=== PATIENT | female | born 1960 | race Caucasian/White ===

== ENCOUNTER 2023-02-03 17:47 | Emergency (ER) | payer BC, SELFPAY ==
[2023-02-03] VITALS (49 sets, daily range): BP systolic 81–178; BP diastolic 44–144; PULSE 84–132; RESP 15–88; TEMP 36.4–37.3; O2SAT 25–98; BMI 32.3
--- NOTE | 2023-02-03 18:04 | EX.ED.DYSGE1 ---
HPI <VALENTIN Kennedy - Last Filed: 02/03/23 20:45> History of Present Illness Chief Complaint: General Illness Narrative Narrative: About 6 days ago patient developed N/V/D and fatigue. She states it resolved after about 3 days but she still feels tired and weak. She has been able to keep down a little bit of food like applesauce and crackers. She is fallen twice this week because she feels weak. No head injury or other injuries. She also complains of low back pain. She did not injure her back during the fall. She states she always urinate frequently but has not noticed a change. She has no chest pain, shortness of breath, cough, abdominal pain, or blood in stool. PFSH <VALENTIN Kennedy - Last Filed: 02/03/23 20:45> [facility] Home Medications atenolol 25 mg tablet mg 02/03/23 [History Last Taken Unknown] Allergy/AdvReac Type Severity Reaction Status Date / Time No Known Allergies Allergy Verified 02/03/23 17:50 Social History (System 10/09/18 @ 08:26 by Bekah Hunt) Smoking Status: Never smoker ROS <VALENTIN Kennedy - Last Filed: 02/03/23 20:45> ROS ED ROS Narrative Constitutional: Negative for fever. Positive for malaise. CVS: Negative for palpitations, chest pain, syncope. Respiratory: Negative for shortness of breath, cough. GI: Positive for nausea, vomiting, diarrhea. Negative for abdominal pain. : Negative for dysuria, hematuria. Neuro: Negative for headache. EXAM <VALENTIN Kennedy Last Filed: 02/03/23 20:45> Physical Exam Narrative Exam Narrative: CONST: Patient sitting in no acute distress. EYES: Normal inspection. ENT: Normal inspection, dry mucous membranes. NECK: Normal inspection. RESP: No respiratory distress, CTAB. CVS: Rapid but regular rhythm, no murmur, no gallop. ABD: Soft and nontender, no guarding or rebound, nondistended, normal bowel sounds x 4. SKIN: Color normal, no rash, warm, dry, intact. EXTREMITIES: Normal appearance, no pedal edema. NEURO: Oriented x4. PSYCH: Normal affect. Const Vital Signs: 02/03/23 17:48 02/03/23 18:02 02/03/23 19:16 Temperature 97.6 F L 98.6 F Temperature Source Temporal Temporal Pulse Rate 114 H 89 Respiratory Rate 19 H 20 H Respiratory Effort Normal Non-Labored Respiratory Pattern Normal Blood Pressure 81/56 L 93/63 Blood Pressure Mean 64 73 Pulse Ox 96 98 Oxygen Delivery Method Room Air Room Air 02/03/23 19:48 02/03/23 19:50 02/03/23 20:00 Temperature 98.9 F Temperature Source Oral Pulse Rate 86 84 87 Respiratory Rate 22 H 21 H 16 Respiratory Effort Respiratory Pattern Blood Pressure 93/62 Blood Pressure Mean 72 Pulse Ox 94 94 93 Oxygen Delivery Method Room Air Room Air 02/03/23 20:35 Temperature Temperature Source Pulse Rate 92 Respiratory Rate 17 Respiratory Effort Respiratory Pattern Blood Pressure 100/86 H Blood Pressure Mean 90 Pulse Ox 92 Oxygen Delivery Method Room Air <Dr. Nathen Banda MD - Last Filed: 02/03/23 19:03> Physical Exam Const Vital Signs: 02/03/23 17:48 02/03/23 18:02 02/03/23 19:16 Temperature 97.6 F L 98.6 F Temperature Source Temporal Temporal Pulse Rate 114 H 89 Respiratory Rate 19 H 20 H Respiratory Effort Normal Non-Labored Respiratory Pattern Normal Blood Pressure 81/56 L 93/63 Blood Pressure Mean 64 73 Pulse Ox 96 98 Oxygen Delivery Method Room Air Room Air 02/03/23 19:48 02/03/23 19:50 02/03/23 20:00 Temperature 98.9 F Temperature Source Oral Pulse Rate 86 84 87 Respiratory Rate 22 H 21 H 16 Respiratory Effort Respiratory Pattern Blood Pressure 93/62 Blood Pressure Mean 72 Pulse Ox 94 94 93 Oxygen Delivery Method Room Air Room Air 02/03/23 20:35 Temperature Temperature Source Pulse Rate 92 Respiratory Rate 17 Respiratory Effort Respiratory Pattern Blood Pressure 100/86 H Blood Pressure Mean 90 Pulse Ox 92 Oxygen Delivery Method Room Air MDM <VALENTIN Kennedy - Last Filed: 02/03/23 20:45> MDM MDM Narrative Medical decision making narrative: History from: patient and spouse Patient has had recent and/V/D as well as weakness and falls. She appears well and nontoxic. BP 81/56, HR 114, otherwise normal vital signs. She has very dry mucous membranes. Heart is rapid but regular with no murmurs. Lungs clear. Abdomen soft and nontender. She has no tenderness of her back or spine. Labs show white count of 19.8, normal hemoglobin at 13.3, platelets 12. She also has a BUN of 100, creatinine 3.07, sodium 130. She has no prior labs for comparison but has no history of kidney disease. I suspect her CECIL could be from dehydration but since she also has a complaint of back pain I ordered a CT scan to rule out renal process. CT shows an 11 mm left UPJ stone with moderate hydronephrosis and perinephric stranding. UA is also consistent with urinalysis. Blood cultures were ordered he was given IV Rocephin. After 3 L IV fluids her blood pressure is now 100/86. Pain was treated with fentanyl due to hypotension. She requires transfer since we do not have urology. Case was discussed with attending at [facility] who accepted. Patient is awaiting a bed. 30 minutes of critical care time was consumed by evaluation of the patient, treatment and planning, discussion with consultants I have personally performed a face to face assessment of the patient and have reviewed the [facility] Note. I performed a substantive portion of the visit including all aspects of the following. My eagle findings include: History is 62-year-old female history of hypertension. 6 days ago started having nausea vomiting and diarrhea for at least 3 days. Says that is somewhat improved. But today felt very weak and fell several times. No LOC. No injuries in the fall. She denies any melena or hematemesis. Patient works at a senior living. Exam is [62-year-old female initial blood pressure 81/56 with a heart rate of 114. Clinic looks very dehydrated. HEENT exam pupils round react to light no trauma to her face or scalp. Very dry mucous membranes and lips. Neck nontender. Lungs clear to auscultation bilaterally. Heart regular rhythm no murmur rate about 115. Chest wall and ribs nontender. Abdomen soft nontender. No peritoneal signs. No distention. Moving all 4 extremities. Nontender no edema. No deformity. Normal marine chronometer assembler strength. Normal dorsi plantarflexion. Back nontender. Skin pale. No rashes. Patient is awake and alert with no focal motor deficits.] Medical Decision Making [62-year-old female suspect significant dehydration suspect secondary to viral gastroenteritis. IV fluids x 2 L. Screening labs. Clinically her abdomen is benign I do not think she needs any imaging.] Other additions or changes: [None] Lab Data Labs: Laboratory Results - last 24 hr 02/03/23 02/03/23 18:25 19:35 WBC 19.8 H RBC 4.87 Hgb 13.3 Hct 39.1 MCV 80.3 L MCH 27.3 MCHC 34.0 RDW Std Deviation 42.9 RDW Coeff of Apurva 14.9 H Plt Count 12 L* MPV TNP Immature Gran % (Auto) 2.000 H Neut % (Auto) 89.8 H Lymph % (Auto) 3.2 L Garrard % (Auto) 4.8 Eos % (Auto) 0.1 Baso % (Auto) 0.1 Absolute Neuts (auto) 17.8 H Absolute Lymphs (auto) 0.64 L Nucleated RBC % 0 Differential Comment SCANNED Diff Path Review June foll Sodium 130 L Potassium 3.5 Chloride 100 Carbon Dioxide 18.0 L Anion Gap 12 BUN 100 H Creatinine 3.07 H Est GFR (MDRD) Af Amer 20 L Est GFR (MDRD) Non-Af 16 L BUN/Creatinine Ratio 32.6 H Glucose 168 H Lactic Acid 1.5 Calcium 8.0 L Total Bilirubin 1.10 H AST 18 ALT 23 Alkaline Phosphatase 345 H Total Protein 6.2 L Albumin 1.8 L Globulin 4.4 H Albumin/Globulin Ratio 0.4 L Urine Color Yellow Urine Clarity Sl. Cloudy Urine pH 5.0 Ur Specific [place] 1.010 Urine Protein 15 H Urine Glucose (UA) Normal Urine Ketones Negative Urine Occult Blood 150 H Urine Nitrite Negative Urine Bilirubin Negative Urine Urobilinogen Normal Ur Leukocyte Esterase 500 H Urine RBC 0-5 SEEN Urine WBC 10-25 SEEN Ur Squamous Epith Cells 0-5 SEEN Urine Bacteria 1+ Urine Mucus 0 SEEN Radiography Diagnostic Testing: Clinical Impression(s) from Imaging Studies Chest X-Ray 02/03/23 18:24 IMPRESSION: Left basilar infiltrate, possible pneumonia. Electronically Signed: Braxton Vázquez MD ([place]) at 18:34 EST , Abdomen/Pelvis CT 02/03/23 19:08 IMPRESSION: 1. Left UPJ calculus (11 mm) with moderate left hydronephrosis and perinephric stranding/edema. 2. Chronic changes, as above. Electronically Signed: Braxton Vázquez MD ([place]) at 20:25 EST , <Dr. Nathen Banda MD - Last Filed: 02/03/23 19:03> [facility] Narrative Medical decision making narrative: I have personally performed a face to face assessment of the patient and have reviewed the [facility] Note. I performed a substantive portion of the visit including all aspects of the following. My eagle findings include: History is 62-year-old female history of hypertension. 6 days ago started having nausea vomiting and diarrhea for at least 3 days. Says that is somewhat improved. But today felt very weak and fell several times. No LOC. No injuries in the fall. She denies any melena or hematemesis. Patient works at a senior living. Exam is [62-year-old female initial blood pressure 81/56 with a heart rate of 114. Clinic looks very dehydrated. HEENT exam pupils round react to light no trauma to her face or scalp. Very dry mucous membranes and lips. Neck nontender. Lungs clear to auscultation bilaterally. Heart regular rhythm no murmur rate about 115. Chest wall and ribs nontender. Abdomen soft nontender. No peritoneal signs. No distention. Moving all 4 extremities. Nontender no edema. No deformity. Normal marine chronometer assembler strength. Normal dorsi plantarflexion. Back nontender. Skin pale. No rashes. Patient is awake and alert with no focal motor deficits.] Medical Decision Making [62-year-old female suspect significant dehydration suspect secondary to viral gastroenteritis. IV fluids x 2 L. Screening labs. Clinically her abdomen is benign I do not think she needs any imaging.] Other additions or changes: [None] History & Record Review Discussion w/independent historian: Patient and Family Lab Data Attestation: I reviewed the patient's lab results. Labs: Laboratory Results - last 24 hr 02/03/23 02/03/23 18:25 19:35 WBC 19.8 H RBC 4.87 Hgb 13.3 Hct 39.1 MCV 80.3 L MCH 27.3 MCHC 34.0 RDW Std Deviation 42.9 RDW Coeff of Apurva 14.9 H Plt Count 12 L* MPV TNP Immature Gran % (Auto) 2.000 H Neut % (Auto) 89.8 H Lymph % (Auto) 3.2 L Garrard % (Auto) 4.8 Eos % (Auto) 0.1 Baso % (Auto) 0.1 Absolute Neuts (auto) 17.8 H Absolute Lymphs (auto) 0.64 L Nucleated RBC % 0 Differential Comment SCANNED Diff Path Review May foll Sodium 130 L Potassium 3.5 Chloride 100 Carbon Dioxide 18.0 L Anion Gap 12 BUN 100 H Creatinine 3.07 H Est GFR (MDRD) Af Amer 20 L Est GFR (MDRD) Non-Af 16 L BUN/Creatinine Ratio 32.6 H Glucose 168 H Lactic Acid 1.5 Calcium 8.0 L Total Bilirubin 1.10 H AST 18 ALT 23 Alkaline Phosphatase 345 H Total Protein 6.2 L Albumin 1.8 L Globulin 4.4 H Albumin/Globulin Ratio 0.4 L Urine Color Yellow Urine Clarity Sl. Cloudy Urine pH 5.0 Ur Specific [place] 1.010 Urine Protein 15 H Urine Glucose (UA) Normal Urine Ketones Negative Urine Occult Blood 150 H Urine Nitrite Negative Urine Bilirubin Negative Urine Urobilinogen Normal Ur Leukocyte Esterase 500 H Urine RBC 0-5 SEEN Urine WBC 10-25 SEEN Ur Squamous Epith Cells 0-5 SEEN Urine Bacteria 1+ Urine Mucus 0 SEEN Radiography Diagnostic Testing: Clinical Impression(s) from Imaging Studies Chest X-Ray 02/03/23 18:24 IMPRESSION: Left basilar infiltrate, possible pneumonia. Electronically Signed: Braxton Vázquez MD ([place]) at 18:34 EST , Abdomen/Pelvis CT 02/03/23 19:08 IMPRESSION: 1. Left UPJ calculus (11 mm) with moderate left hydronephrosis and perinephric stranding/edema. 2. Chronic changes, as above. Electronically Signed: Braxton Vázquez MD ([place]) at 20:25 EST , <Dr. Nathen Banda MD - Last Filed: 02/03/23 19:03> Critical Care Time Critical Care Time: Yes Critical care time (excluding procedures): 30-74 minutes, Including time spent:, Discussing w/Patient &/or Family/Health Inspector Food, Discussing w/Consultants, Arranging Admission or Transfer, Performing Direct Patient Care at Bedside and - (40 min) Discharge Plan Dx/Rx/DC Orders Clinical Impression: Calculus of left kidney, Acute kidney injury, Acute hypotension, Acute dehydration, Viral gastroenteritis, Leukocytosis, Thrombocytopenia, Complicated urinary tract infection Disposition Disposition: Acute Care [facility]
[2023-02-03] MEDS: 0.9% Normal Saline (1000mL) 1,000 ML 999 ML IV ×3 (18:19→19:00)
--- NOTE | 2023-02-03 18:24 | RAD_ITS ---
STUDY: X-RAY CHEST REASON FOR EXAM: Female, 62 years old. weakness TECHNIQUE: AP COMPARISON: None. FINDINGS: Ill-defined infiltrate overlies the cardiac silhouette in the left lung base. There is no demonstrated pleural abnormality. Normal size heart. Normal mediastinum and aracelis. Normal visualized pulmonary arteries. Normal visualized aortic arch and descending thoracic aorta. Normal visualized thoracic spine. Normal visualized ribs, clavicles, and shoulders. There is no demonstrated abnormality of the visualized soft tissue structures of the upper abdomen. RAD/Chest 1 View (Portable) IMPRESSION: Left basilar infiltrate, possible pneumonia. Electronically Signed: Braxton Vázquez MD ([place]) at 18:34 EST ,
[2023-02-03 18:36] LABS: Absolute Lymphocyte Count 0.64 X10^3/uL (0.83-4.51); Absolute Neutrophil Count 17.8 X10^3/uL (2.0-7.7); Basophil# 0.01 X10^3/uL; Basophil% 0.1 % (0-1); Eosinophil# 0.02 X10^3/uL; Eosinophils% 0.1 % (0-5); Hematocrit 39.1 % (37-47); Hemoglobin 13.3 g/dL (12.0-15.0); Lymphocyte # 0.64 X10^3/ul (0.83-4.51); Lymphocyte % 3.2 % (19-41); Mean Corpuscular Hgb 27.3 pg (27.0-32.0); Mean Corpuscular Volume 80.3 fL (81-99); Monocyte# 0.95 X10^3/uL; Monocyte% 4.8 % (0-10); NRBC Flagged by Analyzer 0 % (0-5); Neutrophil # 17.79 X10^3/uL (2.7-7.7); Neutrophil % 89.8 % (47-70); POSITIVE COUNT YES; POSITIVE MORPHOLOGY YES; RBC Distribution Width CV 14.9 % (11.6-14.6); RBC Distribution Width SD 42.9 fl (35.1-43.9); Red Blood Count 4.87 M/mm3 (4.2-5.4); White Blood Count 19.8 K/mm3 (4.4-11.0)
[2023-02-03 18:49] LABS: ALB/GLOB Ratio 0.4 RATIO (0.9-2.4); AST(SGOT) 18 U/L (15-37); Alanine Aminotransfer ALT/SGPT 23 U/L (13-56); Albumin, Serum 1.8 g/dL (3.2-5.0); Alkaline Phosphatase 345 U/L (45-117); Anion Gap 12 (5-15); BUN 100 mg/dL (7-18); BUN/Creat Ratio 32.6 RATIO (10-20); Chloride 100 mmol/L (98-107); Creatinine, Serum 3.07 mg/dL (0.55-1.02); EST Glomerular Filtration Rate 16 mL/min (>60); Est Glom Filt Rate - Afr Amer 20 mL/min (>60); Globulin 4.4 g/dL (2.2-4.2); Glucose 168 mg/dL (74-106); Potassium 3.5 mmol/L (3.5-5.1); Protein, Total 6.2 g/dL (6.4-8.2); Sodium Level 130 mmol/L (136-145)
[2023-02-03 18:54] LABS: Differential Indicated SCAN CRITERIA MET
[2023-02-03 18:55] LABS: Platelet Count 12 K/mm3 (150-450)
[2023-02-03 18:56] LABS: Differential Comment SCANNED
[2023-02-03 19:00] LABS: Lactic Acid 1.5 mmol/L (0.4-1.9)
--- NOTE | 2023-02-03 19:08 | CT_ITS ---
EXAM: CT ABDOMEN AND PELVIS WITHOUT INTRAVENOUS CONTRAST CLINICAL INDICATION: back pain, elevated cr TECHNIQUE: Helically acquired images were obtained of the abdomen and pelvis without intravenous contrast. This CT exam was performed using one or more of the following dose reduction techniques: automated exposure control, adjustment of the mA and/or kV according to patient size, and/or use of iterative reconstruction technique. RADIATION DOSE: CTDIvol = 10.24 mGy, DLP = 524.21 mGy-cm COMPARISON: No relevant prior studies available. FINDINGS: LOWER THORAX: Fibrotic changes of the lung bases. There are a few scattered parenchymal cysts, grossly visualized. ABDOMEN: LIVER: Unremarkable. Homogeneous. GALLBLADDER AND BILE DUCTS: Unremarkable. No calcified gallstones. No gallbladder distention or wall edema. No intra- or extrahepatic biliary ductal dilation. PANCREAS: Unremarkable. No focal cystic mass. SPLEEN: Unremarkable. Normal size without focal cystic or solid mass. ADRENALS: Unremarkable. No nodules. KIDNEYS AND URETERS: Left UPJ calculus (11 mm) with moderate left hydronephrosis and perinephric stranding/edema. Bilateral nephrolithiasis measuring 7 mm on the left and 2-3 mm on the right. Normal renal size and position. STOMACH AND BOWEL: Diverticulosis of the colon. No stomach or bowel distention. No focal inflammatory change. PELVIS: APPENDIX: No evidence of acute appendicitis. BLADDER: Unremarkable. REPRODUCTIVE: Unremarkable as visualized. No mass. ABDOMEN and PELVIS: INTRAPERITONEAL SPACE: Unremarkable. No ascites or other fluid collection. No free air. BONES/JOINTS: Degenerative changes of the lumbar spine. No suspicious lytic or blastic abnormality. SOFT TISSUES: Unremarkable. No discrete abdominal or pelvic wall hernia. VASCULATURE: Atherosclerosis of the abdominal aorta. Abdominal aorta is non-dilated. LYMPH NODES: Unremarkable. No enlarged lymph nodes. CT/Abdomen/Pelvis without Cont IMPRESSION: 1. Left UPJ calculus (11 mm) with moderate left hydronephrosis and perinephric stranding/edema. 2. Chronic changes, as above. Electronically Signed: Braxton Vázquez MD ([place]) at 20:25 EST Reading Location ID and State: [facility] / [place] , Service support ,
[2023-02-03 19:55] LABS: Mucous, Urine 0 SEEN /hpf (<or=2+)
[2023-02-03 20:01] LABS: Color, Urine Yellow (Yellow); Glucose, Dipstick Normal (Normal); Ketone-Dipstick Negative (Negative); Leukocyte Esterase-Dipstick 500 /ul (Negative); Nitrite-Dipstick Negative (Negative); Occult Blood-Urine 150 /ul (Negative); Protein-Dipstick 15 mg/dl (Negative); Urine Bilirubin Dipstick Negative (Negative); Urine Clarity Sl. Cloudy (Clear); Urine Urobilinogen Normal (Normal)
[2023-02-03 20:13] LABS: Bacteria 1+ /hpf (None Seen); Red Blood Cells-Urine 0-5 SEEN /hpf (0-5); Squamous Epithelial Cells - UA 0-5 SEEN /hpf (5-10); White Blood Cells 10-25 SEEN /hpf (0-5)
[2023-02-03] MEDS: Ceftriaxone 1 GM/50 ML BAG IV (20:26)
[2023-02-03] MEDS: fentaNYL 100 MCG/2 ML Ampul 50 MCG IV ×2 (20:26→22:26)
[2023-02-03] MEDS: Ondansetron 4 MG/2 ML Vial IV (20:26)
[2023-02-03] MEDS: 0.9% Normal Saline (1000mL) 1,000 ML 200 ML IV (22:35)
[2023-02-03] MEDS: Acetaminophen 325 MG Tablet 650 MG PO (23:56)
[2023-02-04] VITALS (37 sets, daily range): BP systolic 81–101; BP diastolic 35–81; PULSE 92–123; RESP 12–26; TEMP 36.7; O2SAT 94–96
--- NOTE | 2023-02-04 00:12 | ED.RN ---
2340: instructed by ER provider Erika Finch to increase IV fluid normal saline rate from 200 ml/hr to 1000 ml/hr to manage hypotension prior to transport by EMS. See physician notification for further detail. Provider at bedside during this time
[2023-02-04] MEDS: 0.9% Normal Saline (1000mL) 1,000 ML 200 ML IV (01:16)
[2023-02-04] MEDS: fentaNYL 100 MCG/2 ML Ampul 50 MCG IV (01:23)
--- NOTE | 2023-02-04 01:55 | ED.RN ---
0110: instructed to hold Levophed gtt, unless MAP is less than 60. Provider Mae Finch.
--- NOTE | 2023-02-04 05:36 | EX.ED.DYSGE1 ---
HPI History of Present Illness Chief Complaint: General Illness PFSH PFS Home Medications atenolol 25 mg tablet mg 02/03/23 [History Last Taken Unknown] Allergy/AdvReac Type Severity Reaction Status Date / Time No Known Allergies Allergy Verified 02/03/23 17:50 Social History (System 10/09/18 @ 08:26 by Bekah Hunt) Smoking Status: Never smoker EXAM Physical Exam Const Vital Signs: 02/03/23 17:48 02/03/23 18:02 02/03/23 19:16 Temperature 97.6 F L 98.6 F Temperature Source Temporal Temporal Pulse Rate 114 H 89 Respiratory Rate 19 H 20 H Respiratory Effort Normal Non-Labored Respiratory Pattern Normal Blood Pressure 81/56 L 93/63 Blood Pressure Mean 64 73 Pulse Ox 96 98 Oxygen Delivery Method Room Air Room Air Oxygen Flow Rate (L/min) 02/03/23 19:48 02/03/23 19:50 02/03/23 20:00 Temperature 98.9 F Temperature Source Oral Pulse Rate 86 84 87 Respiratory Rate 22 H 21 H 16 Respiratory Effort Respiratory Pattern Blood Pressure 93/62 Blood Pressure Mean 72 Pulse Ox 94 94 93 Oxygen Delivery Method Room Air Room Air Oxygen Flow Rate (L/min) 02/03/23 20:35 02/03/23 21:00 02/03/23 22:31 Temperature 97.6 F L Temperature Source Temporal Pulse Rate 92 100 130 H Respiratory Rate 17 24 H 24 H Respiratory Effort Respiratory Pattern Blood Pressure 100/86 H 106/68 137/66 H Blood Pressure Mean 90 80 89 Pulse Ox 92 94 95 Oxygen Delivery Method Room Air Room Air Nasal Cannula Oxygen Flow Rate (L/min) 3 02/03/23 22:30 02/03/23 20:00 02/03/23 20:09 Temperature 98.5 F Temperature Source Oral Pulse Rate 129 H 93 Respiratory Rate 88 H 15 Respiratory Effort Respiratory Pattern Blood Pressure 107/66 Blood Pressure Mean 79 Pulse Ox 25 94 Oxygen Delivery Method Room Air Oxygen Flow Rate (L/min) 02/03/23 20:10 02/03/23 20:15 02/03/23 20:20 Temperature Temperature Source Pulse Rate 89 89 87 Respiratory Rate 25 H 17 21 H Respiratory Effort Respiratory Pattern Blood Pressure 102/63 Blood Pressure Mean 75 Pulse Ox 96 95 94 Oxygen Delivery Method Oxygen Flow Rate (L/min) 02/03/23 20:30 02/03/23 20:36 02/03/23 20:40 Temperature Temperature Source Pulse Rate 86 92 93 Respiratory Rate 17 15 19 H Respiratory Effort Respiratory Pattern Blood Pressure 100/86 H 99/55 L Blood Pressure Mean 92 69 Pulse Ox 94 93 94 Oxygen Delivery Method Oxygen Flow Rate (L/min) 02/03/23 20:45 02/03/23 20:50 02/03/23 21:00 Temperature Temperature Source Pulse Rate 95 93 Respiratory Rate 20 H 21 H Respiratory Effort Respiratory Pattern Blood Pressure 104/69 113/81 H Blood Pressure Mean 80 91 Pulse Ox 93 94 Oxygen Delivery Method Oxygen Flow Rate (L/min) 02/03/23 21:10 02/03/23 21:15 02/03/23 21:20 Temperature Temperature Source Pulse Rate 99 97 98 Respiratory Rate 21 H 21 H 21 H Respiratory Effort Respiratory Pattern Blood Pressure 106/68 Blood Pressure Mean 81 Pulse Ox 96 95 94 Oxygen Delivery Method Oxygen Flow Rate (L/min) 02/03/23 21:30 02/03/23 21:40 02/03/23 21:45 Temperature Temperature Source Pulse Rate 98 99 97 Respiratory Rate 24 H 18 22 H Respiratory Effort Respiratory Pattern Blood Pressure 112/66 111/65 Blood Pressure Mean 81 77 Pulse Ox 93 93 92 Oxygen Delivery Method Room Air Oxygen Flow Rate (L/min) 02/03/23 21:50 02/03/23 22:00 02/03/23 22:01 Temperature Temperature Source Pulse Rate 101 H 111 H 110 H Respiratory Rate 24 H 22 H 26 H Respiratory Effort Respiratory Pattern Blood Pressure 132/83 H Blood Pressure Mean 100 Pulse Ox 91 89 89 Oxygen Delivery Method Oxygen Flow Rate (L/min) 02/03/23 22:10 02/03/23 22:15 02/03/23 22:20 Temperature Temperature Source Pulse Rate 120 H 127 H 129 H Respiratory Rate 20 H 24 H 34 H Respiratory Effort Respiratory Pattern Blood Pressure 174/96 H Blood Pressure Mean 107 Pulse Ox 94 Oxygen Delivery Method Oxygen Flow Rate (L/min) 02/03/23 22:30 02/03/23 22:33 02/03/23 22:48 Temperature 98.1 F 99.2 F H Temperature Source Temporal Oral Pulse Rate 132 H 97 93 Respiratory Rate 27 H 17 17 Respiratory Effort Respiratory Pattern Blood Pressure 99/55 L 104/69 Blood Pressure Mean 69 80 Pulse Ox 93 93 Oxygen Delivery Method Nasal Cannula Room Air Oxygen Flow Rate (L/min) 3 02/03/23 23:03 02/03/23 23:18 02/03/23 23:33 Temperature 99.1 F 98.6 F 98.3 F Temperature Source Oral Oral Oral Pulse Rate 126 H 122 H 124 H Respiratory Rate 27 H 29 H 23 H Respiratory Effort Respiratory Pattern Blood Pressure 112/61 92/54 L 88/52 L Blood Pressure Mean 78 66 64 Pulse Ox 95 94 93 Oxygen Delivery Method Nasal Cannula Nasal Cannula Nasal Cannula Oxygen Flow Rate (L/min) 3 3 3 02/03/23 22:30 02/03/23 22:31 02/03/23 22:40 Temperature Temperature Source Pulse Rate 130 H 128 H Respiratory Rate 22 H 29 H Respiratory Effort Respiratory Pattern Blood Pressure 178/144 H 137/66 H Blood Pressure Mean 156 83 Pulse Ox 96 Oxygen Delivery Method Oxygen Flow Rate (L/min) 02/03/23 22:45 02/03/23 22:50 02/03/23 23:00 Temperature Temperature Source Pulse Rate 127 H 128 H Respiratory Rate 27 H 30 H Respiratory Effort Respiratory Pattern Blood Pressure 124/71 H 112/61 Blood Pressure Mean 86 73 Pulse Ox 95 95 Oxygen Delivery Method Oxygen Flow Rate (L/min) 02/03/23 23:10 02/03/23 23:15 02/03/23 23:20 Temperature Temperature Source Pulse Rate 125 H 124 H 124 H Respiratory Rate 25 H 28 H 28 H Respiratory Effort Respiratory Pattern Blood Pressure 92/54 L Blood Pressure Mean 67 Pulse Ox 95 94 93 Oxygen Delivery Method Oxygen Flow Rate (L/min) 02/03/23 23:25 02/03/23 23:30 02/03/23 23:39 Temperature Temperature Source Pulse Rate 123 H 125 H 125 H Respiratory Rate 26 H 25 H 22 H Respiratory Effort Respiratory Pattern Blood Pressure 90/53 L 88/52 L 85/53 L Blood Pressure Mean 65 63 65 Pulse Ox 93 92 Oxygen Delivery Method Oxygen Flow Rate (L/min) 02/03/23 23:40 02/03/23 23:41 02/03/23 23:45 Temperature Temperature Source Pulse Rate 124 H 127 H Respiratory Rate 26 H 28 H Respiratory Effort Respiratory Pattern Blood Pressure 84/44 L 84/50 L Blood Pressure Mean 58 61 Pulse Ox 94 93 Oxygen Delivery Method Oxygen Flow Rate (L/min) 02/03/23 23:50 02/04/23 00:00 02/04/23 00:10 Temperature Temperature Source Pulse Rate 122 H 123 H 118 H Respiratory Rate 21 H 22 H 26 H Respiratory Effort Respiratory Pattern Blood Pressure 94/50 L Blood Pressure Mean 64 Pulse Ox 93 96 95 Oxygen Delivery Method Oxygen Flow Rate (L/min) 02/04/23 00:15 02/04/23 00:18 02/04/23 00:20 Temperature Temperature Source Pulse Rate 118 H 116 H 115 H Respiratory Rate 22 H 23 H 22 H Respiratory Effort Respiratory Pattern Blood Pressure 85/45 L 84/53 L Blood Pressure Mean 55 63 Pulse Ox 95 95 94 Oxygen Delivery Method Oxygen Flow Rate (L/min) 02/04/23 00:30 02/04/23 00:36 02/04/23 00:40 Temperature Temperature Source Pulse Rate 115 H 116 H 114 H Respiratory Rate 20 H 24 H 21 H Respiratory Effort Respiratory Pattern Blood Pressure 87/59 L Blood Pressure Mean 68 Pulse Ox 94 94 94 Oxygen Delivery Method Nasal Cannula Oxygen Flow Rate (L/min) 3 02/04/23 00:45 02/04/23 00:50 02/04/23 00:56 Temperature Temperature Source Pulse Rate 113 H 113 H 113 H Respiratory Rate 23 H 20 H 20 H Respiratory Effort Respiratory Pattern Blood Pressure 88/51 L 99/81 H Blood Pressure Mean 63 89 Pulse Ox 96 95 96 Oxygen Delivery Method Nasal Cannula Oxygen Flow Rate (L/min) 3 02/04/23 01:00 02/04/23 01:03 02/04/23 01:08 Temperature Temperature Source Pulse Rate 116 H 110 H 108 H Respiratory Rate 21 H 20 H 19 H Respiratory Effort Respiratory Pattern Blood Pressure 101/35 L 89/69 L Blood Pressure Mean 54 78 Pulse Ox 95 96 Oxygen Delivery Method Oxygen Flow Rate (L/min) 02/04/23 01:10 02/04/23 01:15 02/04/23 01:19 Temperature Temperature Source Pulse Rate 108 H 108 H 107 H Respiratory Rate 18 19 H 23 H Respiratory Effort Respiratory Pattern Blood Pressure 88/51 L 90/48 L Blood Pressure Mean 63 61 Pulse Ox 95 96 Oxygen Delivery Method Oxygen Flow Rate (L/min) 02/04/23 01:20 02/04/23 01:30 02/04/23 01:40 Temperature Temperature Source Pulse Rate 108 H 106 H 105 H Respiratory Rate 20 H 16 14 Respiratory Effort Respiratory Pattern Blood Pressure 82/51 L Blood Pressure Mean 62 Pulse Ox 95 94 95 Oxygen Delivery Method Oxygen Flow Rate (L/min) 02/04/23 01:45 02/04/23 01:50 02/04/23 01:53 Temperature Temperature Source Pulse Rate 104 H 104 H 104 H Respiratory Rate 15 19 H 15 Respiratory Effort Respiratory Pattern Blood Pressure 83/50 L 85/53 L Blood Pressure Mean 60 63 Pulse Ox 95 94 94 Oxygen Delivery Method Nasal Cannula Oxygen Flow Rate (L/min) 3 02/04/23 02:00 02/04/23 02:02 02/04/23 02:10 Temperature Temperature Source Pulse Rate 100 97 Respiratory Rate 14 14 Respiratory Effort Respiratory Pattern Blood Pressure 85/47 L 83/51 L Blood Pressure Mean 58 62 Pulse Ox 95 95 Oxygen Delivery Method Oxygen Flow Rate (L/min) 02/04/23 02:15 02/04/23 02:20 02/04/23 02:30 Temperature Temperature Source Pulse Rate 100 98 99 Respiratory Rate 13 13 14 Respiratory Effort Respiratory Pattern Blood Pressure 81/52 L 87/52 L Blood Pressure Mean 62 64 Pulse Ox 95 95 95 Oxygen Delivery Method Nasal Cannula Oxygen Flow Rate (L/min) 3 02/04/23 02:40 02/04/23 02:45 02/04/23 02:50 Temperature 98.0 F Temperature Source Core Pulse Rate 96 95 Respiratory Rate 13 16 Respiratory Effort Respiratory Pattern Blood Pressure 88/50 L Blood Pressure Mean 61 Pulse Ox 95 96 Oxygen Delivery Method Oxygen Flow Rate (L/min) 02/04/23 03:00 02/04/23 03:10 02/04/23 03:15 Temperature Temperature Source Pulse Rate 97 94 93 Respiratory Rate 17 12 12 Respiratory Effort Respiratory Pattern Blood Pressure 86/49 L 82/49 L Blood Pressure Mean 62 59 Pulse Ox 96 95 95 Oxygen Delivery Method Oxygen Flow Rate (L/min) 02/04/23 03:16 02/04/23 03:20 Temperature Temperature Source Pulse Rate 92 95 Respiratory Rate 13 16 Respiratory Effort Respiratory Pattern Blood Pressure 87/50 L Blood Pressure Mean 60 Pulse Ox 95 95 Oxygen Delivery Method Nasal Cannula Oxygen Flow Rate (L/min) 3 MDM MDM MDM Narrative Medical decision making narrative: History from: patient and spouse Patient has had recent and/V/D as well as weakness and falls. She appears well and nontoxic. BP 81/56, HR 114, otherwise normal vital signs. She has very dry mucous membranes. Heart is rapid but regular with no murmurs. Lungs clear. Abdomen soft and nontender. She has no tenderness of her back or spine. Labs show white count of 19.8, normal hemoglobin at 13.3, platelets 12. She also has a BUN of 100, creatinine 3.07, sodium 130. She has no prior labs for comparison but has no history of kidney disease. I suspect her CECIL could be from dehydration but since she also has a complaint of back pain I ordered a CT scan to rule out renal process. CT shows an 11 mm left UPJ stone with moderate hydronephrosis and perinephric stranding. UA is also consistent with urinalysis. Blood cultures were ordered he was given IV Rocephin. After 3 L IV fluids her blood pressure is now 100/86. Pain was treated with fentanyl due to hypotension. She requires transfer since we do not have urology. Case was discussed with attending at [facility] who accepted. Patient is awaiting a bed. 30 minutes of critical care time was consumed by evaluation of the patient, treatment and planning, discussion with consultants I have personally performed a face to face assessment of the patient and have reviewed the MIRA Note. I performed a substantive portion of the visit including all aspects of the following. My eagle findings include: History is 62-year-old female history of hypertension. 6 days ago started having nausea vomiting and diarrhea for at least 3 days. Says that is somewhat improved. But today felt very weak and fell several times. No LOC. No injuries in the fall. She denies any melena or hematemesis. Patient works at a [employer]. Exam is [62-year-old female initial blood pressure 81/56 with a heart rate of 114. Clinic looks very dehydrated. HEENT exam pupils round react to light no trauma to her face or scalp. Very dry mucous membranes and lips. Neck nontender. Lungs clear to auscultation bilaterally. Heart regular rhythm no murmur rate about 115. Chest wall and ribs nontender. Abdomen soft nontender. No peritoneal signs. No distention. Moving all 4 extremities. Nontender no edema. No deformity. Normal senior systems engineer strength. Normal dorsi plantarflexion. Back nontender. Skin pale. No rashes. Patient is awake and alert with no focal motor deficits.] Medical Decision Making [62-year-old female suspect significant dehydration suspect secondary to viral gastroenteritis. IV fluids x 2 L. Screening labs. Clinically her abdomen is benign I do not think she needs any imaging.] Other additions or changes: [None] History & Record Review Discussion w/independent historian: Patient and Family Lab Data Attestation: I reviewed the patient's lab results. Labs: Laboratory Results - last 24 hr 02/03/23 02/03/23 18:25 19:35 WBC 19.8 H RBC 4.87 Hgb 13.3 Hct 39.1 MCV 80.3 L MCH 27.3 MCHC 34.0 RDW Std Deviation 42.9 RDW Coeff of [place] 14.9 H Plt Count 12 L* MPV TNP Immature Gran % (Auto) 2.000 H Neut % (Auto) 89.8 H Lymph % (Auto) 3.2 L [place] % (Auto) 4.8 Eos % (Auto) 0.1 Baso % (Auto) 0.1 Absolute Neuts (auto) 17.8 H Absolute Lymphs (auto) 0.64 L Nucleated RBC % 0 Differential Comment SCANNED Diff Path Review May foll Sodium 130 L Potassium 3.5 Chloride 100 Carbon Dioxide 18.0 L Anion Gap 12 BUN 100 H Creatinine 3.07 H Est GFR (MDRD) Af Amer 20 L Est GFR (MDRD) Non-Af 16 L BUN/Creatinine Ratio 32.6 H Glucose 168 H Lactic Acid 1.5 Calcium 8.0 L Total Bilirubin 1.10 H AST 18 ALT 23 Alkaline Phosphatase 345 H Total Protein 6.2 L Albumin 1.8 L Globulin 4.4 H Albumin/Globulin Ratio 0.4 L Urine Color Yellow Urine Clarity Sl. Cloudy Urine pH 5.0 Ur Specific [place] 1.010 Urine Protein 15 H Urine Glucose (UA) Normal Urine Ketones Negative Urine Occult Blood 150 H Urine Nitrite Negative Urine Bilirubin Negative Urine Urobilinogen Normal Ur Leukocyte Esterase 500 H Urine RBC 0-5 SEEN Urine WBC 10-25 SEEN Ur Squamous Epith Cells 0-5 SEEN Urine Bacteria 1+ Urine Mucus 0 SEEN Radiography Diagnostic Testing: Clinical Impression(s) from Imaging Studies Chest X-Ray 02/03/23 18:24 IMPRESSION: Left basilar infiltrate, possible pneumonia. Electronically Signed: Braxton Vázquez MD (Brooks) at 18:34 EST Reading Location ID and State: [facility] / [place] , Service support , Abdomen/Pelvis CT 02/03/23 19:08 IMPRESSION: 1. Left UPJ calculus (11 mm) with moderate left hydronephrosis and perinephric stranding/edema. 2. Chronic changes, as above. Electronically Signed: Braxton Vázquez MD (Bro[place]) at 20:25 EST , Treatment and Re-Evaluation :: Addendum Patient signed out to me pending transport. Patient becomes more hypotensive and tachycardic. Is given additional fluid bolus. Does respond to this however maps are still in the low 60s. BLS transport arrived however they are not able to give fluids and will cancel this transport for ACLS/critical care. Bedside ultrasound performed by myself shows hyperdynamic cardiac activity with no pericardial effusion. IVC still collapsing should she feel that she needs continued IV fluids. After additional bolus vital signs stabilized but tenuous. Levophed is ordered in case her MAP drops below 60 however it does not while she is in the ER. Patient regardless distal admitted to the ICU at [facility]. She has no change in mentation. Is given dose of Tylenol as well. Discharge Plan Dx/Rx/DC Orders Clinical Impression: Calculus of left kidney, Acute kidney injury, Acute hypotension, Acute dehydration, Viral gastroenteritis, Leukocytosis, Thrombocytopenia, Complicated urinary tract infection, Septic shock Disposition Disposition: Acute Care Hospital [facility] Discharge Date/Time: 02/04/23 03:56
[2023-02-06 13:38] LABS: Pathologist Review Reviewed
== END 2023-02-04 03:56 | disposition short-term general hospital (02) ==
PROVIDERS: Physician Assistant; Emergency Provider Emergency Medicine; Visit Provider Emergency Medicine
DX: A41.9 Sepsis, unspecified organism (principal); N17.9 Acute kidney failure, unspecified; R65.21 Severe sepsis with septic shock; N13.6 Pyonephrosis; I10 Essential (primary) hypertension; E86.0 Dehydration; D72.829 Elevated white blood cell count, unspecified; A08.4 Viral intestinal infection, unspecified; R29.6 Repeated falls
CPT/HCPCS: 71045; 74176; 80053; 81001; 83605; 85025; 87040; 87077; 87086; 87088; 87186; 87428; 96361; 96365; 96366; 96367; 96375; 96376; 99284; J7030; J7050; A4216; J2405